=== PATIENT | male | born 1975 | race Caucasian/White ===

== ENCOUNTER 2019-06-29 16:41 | Emergency (ER) | payer OTHER ==
[2019-06-29 16:49] VITALS: TEMP 98.6
[2019-06-29] MEDS ORDERED: KETOROLAC 30 MG/ML 1 ML VIAL IM STA (17:50)
[2019-06-29] MEDS ORDERED: HYDROmorphone 0.5 MG/0.5 ML SYRINGE IM STA (17:50)
[2019-06-29] MEDS ORDERED: DIAZEPAM 5 MG/ML 2 ML INJ IM ONE (17:50)
--- NOTE | 2019-06-29 18:21 | ED ---
Back Pain HPI - General Source: patient Limitations: no limitations <Joelle Anderson - Last Filed: 06/29/19 19:43> <Nica Condon - Last Filed: 07/01/19 12:49> - General Chief Complaint: Back Pain/Injury Stated Complaint: sciatic nerve pain Time Seen by Provider: 06/29/19 17:01 - History of Present Illness Initial Comments: 43-year-old male patient presents to the emergency department today for evaluation of severe low back pain radiating down bilateral legs. Patient states the pain is worse on the right side. States the pain radiates down the back of the leg at the front of the leg feels achy and numb. Denies any saddle anesthesia or loss of bowel or bladder control. Denies any fever or chills. Denies history of IV drug use. Patient states that his pain started worsening 2 weeks ago. States over the last 12 hours it has been severe. States that he is vomiting due to the pain. Denies any abdominal pain, hematuria, dysuria, urinary frequency, urinary urgency. Denies any constipation or diarrhea. Patient states he has had pain like this in the past. Has tried taking Tylenol with no relief. Patient denies any recent rash, cough, shortness of breath, chest pain, dizziness, weakness, hematuria, dysuria, urinary urgency, urinary frequency, visual changes, or any other complaints. (Joelle Anderson) - Related Data Previous Rx's Medication Instructions Recorded Cyclobenzaprine [Flexeril] 10 mg PO TID #15 tab 06/29/19 Ibuprofen [Motrin] 600 mg PO Q8HR PRN #30 tab 06/29/19 methylPREDNISolone [Medrol Dose 4 mg PO DIRECTED #1 pack 06/29/19 Pack] Allergies Allergy/AdvReac Type Severity Reaction Status Date / Time No Known Allergies Allergy Verified 06/29/19 16:49 Review of Systems ROS Other: All systems not noted in ROS Statement are negative. <Joelle Anderson - Last Filed: 06/29/19 19:43> ROS Other: All systems not noted in ROS Statement are negative. <Nica Condon - Last Filed: 07/01/19 12:49> ROS Statement: Those systems with pertinent positive or pertinent negative responses have been documented in the HPI. Past Medical History Past Medical History: No Reported History History of Any Multi-Drug Resistant Organisms: None Reported Past Surgical History: Hernia Repair Past Psychological History: No Psychological Hx Reported Smoking Status: Current every day smoker Past Alcohol Use History: None Reported Past Drug Use History: Marijuana <Joelle Anderson - Last Filed: 06/29/19 19:43> General Exam Limitations: no limitations General appearance: alert, in no apparent distress, other (This is a well- developed, well-nourished adult male patient in no acute distress. Vital signs upon presentation are temperature 98.6F, pulse 68, respirations 20, blood pressure 143/62, pulse ox 96% on room air.) Eye exam: Present: normal appearance, PERRL, EOMI. Absent: scleral icterus, conjunctival injection, periorbital swelling ENT exam: Present: normal exam, normal oropharynx Respiratory exam: Present: normal lung sounds bilaterally. Absent: respiratory distress, wheezes, rales, rhonchi, stridor Cardiovascular Exam: Present: regular rate, normal rhythm, normal heart sounds. Absent: systolic murmur, diastolic murmur, rubs, gallop, clicks GI/Abdominal exam: Present: soft, normal bowel sounds. Absent: distended, tenderness, guarding, rebound, rigid Extremities exam: Present: normal inspection, full ROM, normal capillary refill, other (Skin to the lower extremity is is pink, warm, dry. Cap refills less than 3 seconds. Pedal and posttibial pulses are 2+ and equal bilaterally.). Absent: tenderness, pedal edema, joint swelling, calf tenderness Back exam: Present: normal inspection. Absent: paraspinal tenderness, vertebral tenderness Neurological exam: Present: alert, oriented X3, CN II-XII intact, other (Strength to the lower extremities is 5/5. Patient has appropriate plantar and dorsiflexion.) Psychiatric exam: Present: normal affect, normal mood Skin exam: Present: warm, dry, intact, normal color. Absent: rash <Joelle Anderson - Last Filed: 06/29/19 19:43> Course Vital Signs 06/29/19 06/29/19 16:46 19:46 Temperature 98.6 F Pulse Rate 68 65 Respiratory 20 16 Rate Blood Pressure 143/62 126/80 O2 Sat by Pulse 96 99 Oximetry Medical Decision Making <Joelle Anderson - Last Filed: 06/29/19 19:43> <Nica Condon - Last Filed: 07/01/19 12:49> - Medical Decision Making 43-year-old male patient presents to the emergency department today for evaluation of increased low back pain with radiation of the bilateral lower extremities. Physical examination reveals no spinal or paraspinal tenderness. Neurovascular status is intact to the bilateral lower extremities. He is neurologically intact with no focal deficits. He has no concerning symptoms for cauda equina. His symptoms are consistent with mechanical low back pain and sciatica. We will treat with Medrol Dosepak, anti-inflammatories, and muscle relaxers. He is instructed to follow-up with eap specialist for further evaluation as soon as possible. Return parameters were discussed in detail. He verbalizes understanding and agrees with this plan. (Joelle Anderson) I was available for consultation in the emergency department. The history and physical exam were done by the midlevel provider. I was consulted for this patients care. I reviewed the case with the midlevel provider and based on their presentation of the patient, I agree with the assessment, medical decision making and plan of care as documented. Chart was dictated using [employer] dictation software. Attempts were made to correct any dictation errors however some typographical errors may persist. Patient was seen during a national state of emergency due to the Covid-19 pandemic. (Nica Condon) Disposition Is patient prescribed a controlled substance at d/c from ED?: No Time of Disposition: 19:33 <Joelle Anderson - Last Filed: 06/29/19 19:43> <Nica Condon - Last Filed: 07/01/19 12:49> Clinical Impression: Low back pain, Sciatica Disposition: HOME SELF-CARE Condition: Good Instructions (If sedation given, give patient instructions): Sciatica (ED), Acute Low Back Pain (ED) Additional Instructions: Perform gentle range of motion exercises. Apply warm moist heat to the low back. Take medications as directed. Follow up with your primary care physician for recheck in 1-2 days. Return to the emergency department immediately for any new, worsening, or concerning symptoms. Prescriptions: Cyclobenzaprine [Flexeril] 10 mg PO TID #15 tab methylPREDNISolone [Medrol Dose Pack] 4 mg PO DIRECTED #1 pack Ibuprofen [Motrin] 600 mg PO Q8HR PRN #30 tab PRN Reason: Pain Referrals: Tim Poole MD [Medical Doctor] - 1-2 days
[2019-06-29] MEDS ORDERED: CYCLOBENZAPRINE 10MG STARTER 3 TAB BTL PO STA (19:33)
[2019-06-29] MEDS ORDERED: ACET/COD 300 MG/30 MG STARTER PACK 6 TAB BTL PO STA (19:33)
[2019-06-29 19:46] VITALS: BP 126/80; PULSE 65; RESP 16
== END 2019-06-29 20:06 | disposition home or self-care (01) ==
LOC: EC 16:41
DX: M54.42 Lumbago with sciatica, left side (principal); M54.41 Lumbago with sciatica, right side; F17.200 Nicotine dependence, unspecified, uncomplicated
CPT/HCPCS: 99283; 96372 ×3; J3360; J1885; J1170